=== PATIENT | male | born 1960 | race Caucasian/White ===

== ENCOUNTER 2016-10-13 16:58 | Emergency (ER) | payer BC ==
[~2016-10-13] VITALS: Ht 185.4 cm; Wt 83.0 kg
[~2016-10-13 16:58] MED LIST: HYDR-3708
--- OUTSIDE RECORDS SUMMARY | 2016-10-13 17:01 | XMS REPORT | Continuity of Care Document ---
Author Author [facility] Organization [facility] Address Unknown Phone Unavailable Care Team Providers Care [employer] Name Role Phone ARTHUR WAGNER MD PCP [phone] Insurance Providers Payer Name Policy Number Subscriber Name Relationship [facility] [id number] Jin Humphries 17 Self / Same As Patient Advance Directives Directive Response Recorded Date/Time Advanced Directives Yes 03/30/15 7:04pm Type Living Will 03/30/15 7:04pm Problems Active Problems Medical Problem Onset Date Status Chest pain Unknown Acute Medications Current Home Medications Medication Dose Units Route Directions Days/Qty Instructions Start Date Hydrocodone Bit/Acetaminophen 1 Each 10-325 As Needed 30 03/30/15 Social History No social history. Hospital Discharge Instructions No hospital discharge instructions. Plan of Care Prescriptions See Medication Section Functional Status No functional status results. Allergies, Adverse Reactions, Alerts No known allergies. Immunizations Name Given Type Status Date Influenza Vaccine Received if Current 02/15/15 Historical Historical Vital Signs No known vital signs results. Results No known relevant diagnostic tests, laboratory data and/or discharge summary. Procedures No known history of procedures. Encounters Encounter Location Arrival/Admit Date Discharge/Depart Date Attending Provider Discharged Recurring [facility] 01/18/16 8:15am 01/26/16 3:57pm Carlos Carmona MD
[2016-10-13 20:34] VITALS: BP 155/79
== END 2016-10-13 17:47 | disposition home or self-care (01) ==
LOC: ED 17:02
DX: S76.311A Strain of muscle, fascia and tendon of the posterior muscle group at thigh level, right thigh, initial encounter (principal); X50.0XXA Overexertion from strenuous movement or load, initial encounter; Y93.57 Activity, non-running track and field events
CPT/HCPCS: 99281; 99282